=== PATIENT | female | born 1960 | race Caucasian/White ===

== ENCOUNTER 2020-01-03 17:53 | Emergency (ER) | payer OTHER ==
[2020-01-03 18:10] VITALS: BP 144/77
--- NOTE | 2020-01-03 18:41 | UC ---
Upper Extremity HPI - HPI Summary HPI Summary: Pt c/o right arm and shoulder pain that began s/p falling from standing height while walking on sidewalk that was uneven on 12/24/19. P treports pain is generalized in right upper extremity. Pt's right hand is swollen and large green/yellow ecchymosins on right bicep area. Pt c/o pain from right shoulder to right hand. Limited ROM of right upper extremity. - History of Current Complaint Chief Complaint: UCUpperExtremity Stated Complaint: RIGHT ARM INJURY PT FELL Time Seen by Provider: 01/03/20 17:56 Hx Obtained From: Patient ?: No Onset/Duration: Sudden Onset, Lasting Days, Still Present Severity Initially: Moderate Severity Currently: Moderate Pain Intensity: 0 Location Of Pain: Is Discrete @ - right upper arm, Radiates To - from shoulder to wrist/hand Character: Dull, Aching, Stiffness Aggravating Factor(s): Movement Alleviating Factor(s): Rest Associated Signs And Symptoms: Positive: Swelling - right hand, Bruising - healing green/yellow in color at time of PE, Weakness Related History: Dominant Hand Right - Risk Factors Non-Orthopedic Risk Factor: Negative DVT Risk Factors: Negative Septic Arthritis Risk Factor: Negative Compartment Syndrome Risk Factors: Pain - Allergies/Home Medications Allergies/Adverse Reactions: Allergies Allergy/AdvReac Type Severity Reaction Status Date / Time ampicillin Allergy Rash Verified 01/03/20 17:59 clindamycin Allergy Rash Verified 01/03/20 17:59 erythromycin base Allergy Rash Verified 01/03/20 17:59 Home Medications: Home Medications Aspirin EC TAB* [Ecotrin EC Low Dose 81 MG*] 81 mg PO DAILY 01/03/20 [History Confirmed 01/03/20] Simvastatin 20 mg PO DAILY 01/03/20 [History Confirmed 01/03/20] metFORMIN* [Glucophage 500 MG TAB *] 500 mg PO BID 01/03/20 [History Confirmed 01/03/20] traMADol TAB* [Ultram*] 50 mg PO Q12H PRN #10 tab MDD 2 01/03/20 [Rx] PMH/Surg Hx/FS Hx/Imm Hx Previously Healthy: Yes - Surgical History Surgical History: None - Family History Known Family History: Positive: Cardiac Disease - Social History Alcohol Use: None Substance Use Type: None Smoking Status (MU): Never Smoked Tobacco Review of Systems All Other Systems Reviewed And Are Negative: Yes Constitutional: Positive: Negative Skin: Positive: Bruising - right upper arm/bicep area Eyes: Positive: Negative ENT: Positive: Negative Respiratory: Positive: Negative Cardiovascular: Positive: Negative Gastrointestinal: Positive: Negative Genitourinary: Positive: Negative Motor: Positive: Decreased ROM - right upper extremity Neurovascular: Positive: Negative Musculoskeletal: Positive: Arthralgia, Edema - right upper arm generalized edeam . right hand non pitting edema. radial pulse palpated, strong. brisk capillary refill. Neurological/Mental Status: Positive: Negative Psychological: Positive: Negative Is Patient Immunocompromised?: No Physical Exam Triage Information Reviewed: Yes Appearance: Pain Distress Vital Signs: Initial Vital Signs Temp 98.5 F 01/03/20 18:00 Pulse 94 01/03/20 18:00 Resp 16 01/03/20 18:00 BP 144/77 01/03/20 18:00 Pulse Ox 100 01/03/20 18:00 Vital Signs Reviewed: Yes Eye Exam: Normal ENT: Positive: Hearing grossly normal Dental Exam: Other - wearing mask due to COVID precautions Neck exam: Normal Respiratory Exam: Normal Respiratory: Positive: No respiratory distress Cardiovascular Exam: Normal Musculoskeletal: Positive: ROM Limited @ - right arm and shoulder, Edema @ - right hand, non pitting, right arm generalized, with yellow/green discoloration at bicep area, no evidence of bicep tendon rupture, Other: - palpable right radial pulse. brisk capilalry refill right fingers. Neurological Exam: Normal Psychological Exam: Normal Skin Exam: Other - yellow/green bruising right bicep area, covering entire anterior humeral area. Diagnostics - Radiology No standard instances Radiology Interpretation Completed By: Radiologist - Continuous Loft Operator: ( [id number]) Laminating Machine Tender: ([email or web address]) Report Date: 01/03/2020 18:57:40 Report Status: Final Start of Report Content PROCEDURE INFORMATION: Exam: XR Right Shoulder Exam date and time: 01/03/2020 6:41 PM Age: 59 years old Clinical indication: Injury or trauma; Fall; Initial encounter; Blunt trauma (contusions or hematomas; Shoulder and arm, upper and arm, lower and wrist; Right; Injury date: 12.24.19; Additional info: Fall from standing 10 days ago TECHNIQUE: Imaging protocol: XR Right shoulder. Views: 2 or more views. COMPARISON: No relevant prior studies available. FINDINGS: Bones/joints: Comminuted fracture of the right humeral head and neck. There is displacement of fracture fragments at the level of the humeral neck. No dislocation of the right glenohumeral joint. Diffuse osteopenia. There is an ossific/fracture fragment identified within the glenohumeral joint superiorly. A glenoid fracture cannot be excluded. The acromioclavicular joint is intact. Soft tissues : No significant soft tissue swelling visualized. IMPRESSION: 1. Comminuted fracture of the right humeral head and neck. There is displacement of fracture fragments at the level of the humeral neck. 2. There is an ossific/fracture fragment identified within the glenohumeral joint superiorly. A glenoid fracture cannot be excluded. Dictated and Authenticated by: Deepak Burden MD 01/03/2020 6:57 PM Eastern Time ([place] and [place]) To contact [facility] with a general question: [facility] - [phone] For direct physician to physician contact: Physician Hotline - [phone] [facility] ([facility] Facility ID #[id number]) End of Report Content Negative for fracture for forearm. Upper Extremity Course/Dx - Differential Dx/Diagnosis Differential Diagnosis/HQI/PQRI: Fracture (Closed) Provider Diagnosis: Fracture of humeral head, right, closed Discharge ED - Sign-Out/Discharge Documenting (check all that apply): Patient Departure All imaging exams completed and their final reports reviewed: Yes - Discharge Plan Condition: Stable Disposition: HOME Prescriptions: traMADol TAB* [Ultram*] 50 mg PO Q12H PRN #10 tab MDD 2 PRN Reason: Pain - Moderate Patient Education Materials: Proximal Humerus Fracture (ED) Referrals: Fito Mari MD [Medical Doctor] - As Soon As Possible Alexys Bazzi DO [Primary Care Provider] - If Needed Additional Instructions: Please follow up on 01/06/[address] Richardson. Please use pillows to help support your arm and shoulder at night to sleep. - Billing Disposition and Condition Condition: STABLE Disposition: Home
== END 2020-01-03 19:30 | disposition home or self-care (01) ==
LOC: UCCORT 17:53
DX: S42.201A Unspecified fracture of upper end of right humerus, initial encounter for closed fracture (principal); W18.30XA Fall on same level, unspecified, initial encounter; Y93.01 Activity, walking, marching and hiking; Y92.480 Sidewalk as the place of occurrence of the external cause; R60.0 Localized edema; Z88.1 Allergy status to other antibiotic agents; Z88.0 Allergy status to penicillin; Z79.82 Long term (current) use of aspirin
CPT/HCPCS: 99213; G0463